=== PATIENT | female | born 1950 | race Caucasian/White ===

== ENCOUNTER → 2017-10-08 09:19 | Outpatient (CLI) | payer OTHER, SELFPAY ==
[2017-10-08 10:18] LABS: Absolute Lymphocyte Count 1.34 X10^3/ul (0.83-4.51); Absolute Neutrophil Count 3.1 X10^3/uL (2.0-7.7); Basophil# 0.03 X10^3/uL; Basophil% 0.6 % (0-1); Eosinophil# 0.19 X10^3/uL; Eosinophils% 3.7 % (0-5); Hematocrit 45.1 % (37-47); Lymphocyte # 1.34 X10^3/ul (4.0); Lymphocyte % 26.2 % (19-41); Mean Corp Hgb Conc 33.3 g/gl (32-36); Mean Corpuscular Hgb 29.4 pg (27.0-32.0); Mean Corpuscular Volume 88.4 fL (81-99); Monocyte# 0.49 X10^3/uL; Monocyte% 9.6 % (0-10); Neutrophil # 3.07 X10^3/uL (2.7-7.7); Neutrophil % 59.9 % (47-70); Platelet Count 289 K/mm3 (150-450); RBC Distribution Width CV 14.4 % (11.6-14.6); RBC Distribution Width SD 46.4 fl (35.1-43.9); White Blood Count 5.1 K/mm3 (4.4-11.0)
[2017-10-08 10:20] LABS: Erythrocyte Sedimentation Rate 3 mm/hr (0-30); POSITIVE COUNT NO; POSITIVE DIFFERENTIAL NO; POSITIVE MORPHOLOGY NO
[2017-10-08 10:39] LABS: AST(SGOT) 18 U/L (15-37); Alanine Aminotransfer ALT/SGPT 22 U/L (13-56); Albumin, Serum 3.8 g/dL (3.2-5.0); Alkaline Phosphatase 78 U/L (45-117); Bilirubin, Direct 0.19 mg/dL (0.00-0.30); Cholesterol 159 mg/dL (200); High Density Lipoprotein 68 mg/dL; Protein, Total 6.8 g/dL (6.4-8.2); Triglycerides 42 mg/dL; Very Low Density Lipoprotein 8 mg/dL (5-40)
[2017-10-12 20:08] LABS: Lyme IgG P18 Ab Absent (.); Lyme IgG P23 Ab Absent (.); Lyme IgG P28 Ab Absent (.); Lyme IgG P30 Ab Absent (.); Lyme IgG P39 Ab Absent (.); Lyme IgG P41 Ab Absent (.); Lyme IgG P45 Ab Absent (.); Lyme IgG P58 Ab Absent (.); Lyme IgG P66 Ab Absent (.); Lyme IgG P93 Ab Absent (.); Lyme IgM P23 Ab Absent (.); Lyme IgM P39 Ab Absent (.); Lyme IgM P41 Ab Absent (.)
[2017-10-13 14:56] LABS: Lyme IgG WB Interpretation Negative (.); Lyme IgM WB Interpretation Negative (.)
== END ==
PROVIDERS: Family Provider Family Medicine; PCP Family Medicine; Visit Provider Orthopaedic Surgery
DX: M17.11 Unilateral primary osteoarthritis, right knee (principal); M25.461 Effusion, right knee
CPT/HCPCS: 36415; 80061; 80076; 85025; 85652; 86617

== ENCOUNTER → 2017-11-12 13:29 | Outpatient (CLI) | payer OTHER, SELFPAY ==
[2017-11-12 16:10] LABS: Absolute Lymphocyte Count 1.14 X10^3/ul (0.83-4.51); Absolute Neutrophil Count 3.2 X10^3/uL (2.0-7.7); Basophil# 0.07 X10^3/uL; Basophil% 1.4 % (0-1); Eosinophil# 0.09 X10^3/uL; Eosinophils% 1.8 % (0-5); Hematocrit 45.4 % (37-47); Hemoglobin 14.6 g/dl (12.0-15.0); Lymphocyte # 1.14 X10^3/ul (4.0); Lymphocyte % 22.7 % (19-41); Mean Corp Hgb Conc 32.2 g/gl (32-36); Mean Corpuscular Hgb 28.7 pg (27.0-32.0); Mean Corpuscular Volume 89.2 fL (81-99); Mean Platelet Vol. 10.1 fl (6.2-12.0); Neutrophil # 3.22 X10^3/uL (2.7-7.7); Neutrophil % 64.1 % (47-70); Platelet Count 317 K/mm3 (150-450); RBC Distribution Width SD 45.8 fl (35.1-43.9); Red Blood Count 5.09 M/mm3 (4.2-5.4)
[2017-11-12 16:12] LABS: POSITIVE COUNT NO; POSITIVE DIFFERENTIAL NO; POSITIVE MORPHOLOGY NO
[2017-11-12 16:19] LABS: Erythrocyte Sedimentation Rate 10 mm/hr (0-30)
[2017-11-12 16:27] LABS: CRP < 2.90 mg/L (0.0-3.0); CRP, High Sensitivity Cardiac 0.76 mg/L; Rheumatoid Factor < 10.0 IU/mL (<15); Thyroid Stim Hormone (TSH) 0.62 uIU/mL (0.358-3.74)
[2017-11-13 08:22] LABS: Vitamin D,25 Hydroxy 24.6 ng/mL (29.95-100.01)
[2017-11-17 15:33] LABS: ANTINUCLEAR ANTIBODIES DIRECT Negative (Negative)
[2017-11-18 12:07] LABS: Lyme IgG P18 Ab Absent (.); Lyme IgG P23 Ab Absent (.); Lyme IgG P28 Ab Absent (.); Lyme IgG P30 Ab Absent (.); Lyme IgG P39 Ab Absent (.); Lyme IgG P41 Ab Absent (.); Lyme IgG P45 Ab Absent (.); Lyme IgG P58 Ab Absent (.); Lyme IgG P66 Ab Absent (.); Lyme IgG P93 Ab Absent (.); Lyme IgM P23 Ab Absent (.); Lyme IgM P39 Ab Absent (.); Lyme IgM P41 Ab Absent (.)
[2017-11-18 13:09] LABS: Lyme IgG WB Interpretation Negative (.); Lyme IgM WB Interpretation Negative (.)
== END ==
PROVIDERS: Family Provider Family Medicine; PCP Family Medicine; Visit Provider Orthopaedic Surgery
DX: M79.672 Pain in left foot (principal)
CPT/HCPCS: 36415; 82306; 84443; 84550; 85025; 85652; 86038; 86140; 86141; 86431; 86617

== ENCOUNTER → 2017-12-24 08:15 | Outpatient (CLI) | payer OTHER, SELFPAY | PROVIDERS: Family Provider Family Medicine; PCP Family Medicine; Visit Provider Orthopaedic Surgery | DX: M13.0 Polyarthritis, unspecified (principal) | CPT/HCPCS: 87177; 87209; 87506 ==

== ENCOUNTER → 2019-04-28 10:14 | Outpatient (CLI) | payer MEDICARE, OTHER, SELFPAY ==
--- NOTE | 2019-04-28 10:22 | RAD_ITS ---
STUDY: X-RAY CHEST REASON FOR EXAM: Female, 68 years old. Cough. TECHNIQUE: PA and lateral views of the chest. COMPARISON: None. FINDINGS: Cardiac silhouette unremarkable. Pulmonary vascularity unremarkable. Aorta unremarkable. No focal patchy airspace opacities. No pleural effusions. Slightly coarse lung markings. Upper abdomen unremarkable. Osseous structures slightly demineralized with degenerative features. No pneumothorax. RAD/Chest PA and Lateral IMPRESSION: No acute cardiopulmonary findings Electronically Signed: Sunny Montesinos DO at 11:21 EST Tel , Service support ,
== END ==
PROVIDERS: Family Provider Family Medicine; PCP Family Medicine; Referring Provider Nurse Practitioner Family; Visit Provider Nurse Practitioner Family
DX: R05 Cough (principal)
CPT/HCPCS: 71046

== ENCOUNTER → 2020-01-25 | Outpatient (CLI) | payer MEDICARE, OTHER, SELFPAY ==
[2020-01-25 10:04] LABS: Hematocrit 44.6 % (37-47); Hemoglobin 14.6 g/dL (12.0-15.0); Mean Corp Hgb Conc 32.7 g/dL (32-36); Mean Corpuscular Hgb 33.6 pg (27.0-32.0); Mean Corpuscular Volume 102.5 fL (81-99); Mean Platelet Vol. 9.7 fl (6.2-12.0); Platelet Count 327 K/mm3 (150-450); RBC Distribution Width SD 49.5 fl (35.1-43.9); Red Blood Count 4.35 M/mm3 (4.2-5.4); White Blood Count 4.3 K/mm3 (4.4-11.0)
[2020-01-25 10:44] LABS: CRP < 2.90 mg/L (0.0-3.0)
[2020-01-26 20:07] LABS: Endomysial Antibody IgA Negative (Negative)
[2020-01-26 20:37] LABS: Immunoglobulin A 143 mg/dL (87-352); t-Transglutaminase IgA <2 U/mL (0-3)
== END | disposition home or self-care (01) ==
LOC: MTLAB 07:57
PROVIDERS: PCP Family Medicine; Referring Provider Internal Medicine Gastroenterology; Visit Provider Internal Medicine Gastroenterology
DX: R19.7 Diarrhea, unspecified (principal)
CPT/HCPCS: 36415; 82784; 83516; 85027; 86140; 86255

== ENCOUNTER → 2020-01-27 | Outpatient (CLI) | payer MEDICARE, OTHER, SELFPAY ==
--- NOTE | 2020-01-27 12:20 | COLBX_PTH ---
PATIENT: VOLODYMYR FELDMAN [facility] U#:[id number] AGE/SX: 69/F ROOM: RE01/27/[address]: Dr. Osman Kumar MD : 1950 BED: DIS: 01/27/2020 SPEC #: [id number] RECD: 01/27/20 15:11 STATUS: COOKIE ASHLEY #: [id number] ELIZA: 01/27/20 12:[address]: Osman Kumar DEPT: SURGICAL PATHOLOGY RECD BY: Eduard Tilley ENTERED: 01/30/20 07:18 SP TYPE: COLON BX OTHR DR: Dr. Sunny Pleitez MD [facility] Tissues: A - Ileum, NOS B - COLON BIOPSY Procedures: Trichrome (control) Special Stain Group II Surgery Specimen Level IV HEADER OPERATION: Colonoscopy with biopsies PRE-OP DIAGNOSIS: Diarrhea, abdominal cramping TISSUE SUBMITTED: A - Terminal ileum, B - Right and left colon MICROSCOPIC DIAGNOSIS A. Terminal ileum, biopsy: No pathologic change. No evidence of ileitis. B. Right and left colon, biopsies: Suggestive of lymphocytic colitis. See comment. AM:sydnie 01/31/20 COMMENT B. Trichrome stain with matched control does not reveal a thin basal plate. Clinical correlation is suggested. MICROSCOPIC DESCRIPTION Slides are reviewed. GROSS DESCRIPTION A - Received in fixative is one container labeled with the patient's name and designated terminal ileum biopsy. The specimen consists of multiple irregular fragments of light arguello soft tissue that in aggregate measure 0.7 x 0.5 x 0.1 cm. The specimen is totally submitted in one cassette. B - Received in fixative is one container labeled with the patient's name and designated right and left colon. The specimen consists of multiple irregular fragments of light arguello soft tissue that in aggregate measure 1.5 x 0.6 x 0.1 cm. The specimen is totally submitted in one cassette. / AM:sydnie 01/30/20 TC:3 CPT: 50522 x2, 00017
== END | disposition home or self-care (01) ==
LOC: LABSPEC 15:24
PROVIDERS: PCP Family Medicine; Referring Provider Internal Medicine Gastroenterology; Visit Provider Internal Medicine Gastroenterology
DX: R19.7 Diarrhea, unspecified (principal); R10.9 Unspecified abdominal pain
CPT/HCPCS: 88305; 88313

== ENCOUNTER → 2020-04-09 | Outpatient (CLI) | payer MEDICARE, OTHER, SELFPAY ==
[2020-04-18 14:22] LABS: Fats, Neutral Normal (.); Fats, Total Normal (.)
== END | disposition home or self-care (01) ==
LOC: LABSPEC 14:01
PROVIDERS: PCP Family Medicine; Referring Provider Internal Medicine Gastroenterology; Visit Provider Internal Medicine Gastroenterology
DX: R19.7 Diarrhea, unspecified (principal)
CPT/HCPCS: 82705

== ENCOUNTER → 2021-01-09 10:41 | Outpatient (CLI) | payer MEDICARE, OTHER, SELFPAY ==
[2021-01-09 12:17] LABS: Erythrocyte Sedimentation Rate < 1 mm/hr (0-30)
[2021-01-09 12:19] LABS: Hematocrit 40.7 % (37-47); Mean Corp Hgb Conc 34.4 g/dL (32-36); Mean Corpuscular Hgb 40.9 pg (27.0-32.0); Mean Platelet Vol. 9.7 fl (6.2-12.0); Platelet Count 310 K/mm3 (150-450); RBC Distribution Width CV 11.9 % (11.6-14.6); Red Blood Count 3.42 M/mm3 (4.2-5.4)
[2021-01-09 12:34] LABS: CRP < 2.90 mg/L (0.0-3.0)
[2021-01-10 21:07] LABS: ANTINUCLEAR ANTIBODIES DIRECT Negative (Negative)
== END ==
PROVIDERS: PCP Family Medicine; Referring Provider Internal Medicine Gastroenterology; Visit Provider Internal Medicine Gastroenterology
DX: K52.9 Noninfective gastroenteritis and colitis, unspecified (principal)
CPT/HCPCS: 36415; 85027; 85652; 86038; 86140

== ENCOUNTER → 2021-02-27 15:08 | Outpatient (CLI) | payer MEDICARE, OTHER, SELFPAY ==
[2021-02-27 17:56] LABS: Absolute Lymphocyte Count 1.58 X10^3/uL (0.83-4.51); Absolute Neutrophil Count 3.3 X10^3/uL (2.0-7.7); Basophil# 0.01 X10^3/uL; Basophil% 0.2 % (0-1); Eosinophil# 0.15 X10^3/uL; Eosinophils% 2.7 % (0-5); Hematocrit 42.6 % (37-47); Hemoglobin 14.4 g/dL (12.0-15.0); Lymphocyte # 1.58 X10^3/ul (0.83-4.51); Lymphocyte % 28.9 % (19-41); Mean Corp Hgb Conc 33.8 g/dL (32-36); Mean Corpuscular Hgb 38.9 pg (27.0-32.0); Mean Corpuscular Volume 115.1 fL (81-99); Mean Platelet Vol. 9.7 fl (6.2-12.0); Monocyte# 0.42 X10^3/uL; Monocyte% 7.7 % (0-10); NRBC Flagged by Analyzer 0 % (0-5); Neutrophil # 3.28 X10^3/uL (2.7-7.7); Neutrophil % 60.1 % (47-70); Platelet Count 316 K/mm3 (150-450); RBC Distribution Width CV 13.2 % (11.6-14.6); RBC Distribution Width SD 56.2 fl (35.1-43.9); White Blood Count 5.5 K/mm3 (4.4-11.0)
[2021-02-27 18:25] LABS: Vitamin B12 142 pg/mL (211-911)
[2021-02-27 18:26] LABS: Hemoglobin A1c 5.5 % (3.8-5.6)
[2021-02-27 19:02] LABS: AST(SGOT) 14 U/L (15-37); Alanine Aminotransfer ALT/SGPT 20 U/L (13-56); Albumin, Serum 3.7 g/dL (3.2-5.0); Alkaline Phosphatase 76 U/L (45-117); Anion Gap 5 (5-15); BUN 16 mg/dL (7-18); BUN/Creat Ratio 19.5 RATIO (10-20); Chloride 103 mmol/L (98-107); Creatinine, Serum 0.82 mg/dL (0.55-1.02); EST Glomerular Filtration Rate 73 mL/min (>60); Est Glom Filt Rate - Afr Amer 89 mL/min (>60); Globulin 3.6 g/dL (2.2-4.2); Glucose 131 mg/dL (74-106); Potassium 3.5 mmol/L (3.5-5.1); Protein, Total 7.3 g/dL (6.4-8.2); Sodium Level 138 mmol/L (136-145); Thyroid Stim Hormone (TSH) 0.72 uIU/mL (0.358-3.74)
[2021-03-07 14:50] LABS: VITAMIN B6 8.7 ug/L (2.0-32.8)
[2021-03-09 11:11] LABS: Vitamin B1, Thiamine 175.7 nmol/L (66.5-200.0)
== END ==
PROVIDERS: Family Medicine; PCP Family Medicine; Referring Provider Family Medicine; Visit Provider Family Medicine
DX: D75.89 Other specified diseases of blood and blood-forming organs (principal); G62.9 Polyneuropathy, unspecified
CPT/HCPCS: 36415; 80053; 82607; 82746; 83036; 84207; 84425; 84443; 85025

== ENCOUNTER → 2021-03-07 12:58 | Outpatient (CLI) | payer MEDICARE, OTHER, SELFPAY ==
--- NOTE | 2021-03-07 12:59 | ECHOD_ITS ---
Reason For Study: MURMUR Procedure This was a 2D Doppler, Color Flow transthoracic echocardiogram. The exam was of adequate technical quality. Exam performed in department. Left Ventricle Normal LV size. Left ventricular systolic function is normal. The estimated ejection fraction is 60 %. The global longitudinal strain = -19 % (normal). Diastolic function is indeterminate. No regional wall motion abnormalities noted. Right Ventricle Normal RV size. Normal systolic function. Atria Normal left atrium. Normal right atrium. No doppler evidence for ASD. Mitral Valve There is no mitral annular calcification. Normal mitral valve. Mild (1+) mitral valve insufficiency. Tricuspid Valve Normal tricuspid valve. Mild to moderate (1-2+) tricuspid valve insufficiency. Right ventricular systolic pressure estimated to be 32 mmHg. Aortic Valve Trisinus/trileaflet aortic valve. Mild diffuse aortic valve thickening. Mild focal aortic valve calcification. Pulmonic Valve The pulmonic valve is not well visualized. Great Vessels Mildly dilated aortic root. Pericardium/Pleural No pericardial effusion. MMode/2D Measurements & Calculations LVIDd: 4.5 cm IVSd: 0.59 cm Ao root diam: 4.1 cm LVIDs: 3.2 cm LVPWd: 0.65 cm RVDd: 3.4 cm FS: 29.3 % LAV(MOD-bp): 40.8 ml LVAd ap4: 24.5 cm2 LVAd ap2: 29.1 cm2 LAV(MOD-bp) Indexed: 23.9 ml/m2 LVLd ap4: 7.8 cm LVLd ap2: 8.1 cm LAV(MOD-sp2): 40.0 ml EDV(MOD-sp4): 63.4 ml EDV(MOD-sp2): 88.0 ml LAV(MOD-sp4): 36.7 ml EDV(sp4-el): 65.5 ml EDV(sp2-el): 88.7 ml LVAs ap4: 14.2 cm2 LVAs ap2: 15.6 cm2 LVLs ap4: 6.5 cm LVLs ap2: 6.7 cm ESV(MOD-sp4): 26.4 ml ESV(MOD-sp2): 31.0 ml ESV(sp4-el): 26.5 ml ESV(sp2-el): 31.0 ml EF(MOD-sp4): 58.3 % EF(MOD-sp2): 64.8 % EF(sp4-el): 59.6 % SV(MOD-sp4): 36.9 ml SV(MOD-sp2): 57.0 ml SV(sp4-el): 39.0 ml LA dimension(2D): 4.0 cm LA A4 area: 14.6 cm2 RA A4 area: 17.8 cm2 Doppler Measurements & Calculations MV E max waldemar: 80.8 cm/sec Lat Peak E' Waldemar: 5.9 cm/sec Med Peak E' Waldemar: 5.1 cm/sec MV A max waldemar: 101.9 cm/sec E/E' lat: 13.7 E/E' med: 15.8 MV E/A: 0.79 Ao V2 max: 143.9 cm/sec LV V1 max: 109.7 cm/sec TR max waldemar: 267.3 cm/sec Ao max P.3 mmHg LV V1 max P.8 mmHg TR max P.6 mmHg ECHO/Echo Complete Interpretation Summary Left ventricular systolic function is normal. The estimated ejection fraction is 60 %. The global longitudinal strain = -19 % (normal). Mild (1+) mitral valve insufficiency. Mild to moderate (1-2+) tricuspid valve insufficiency. Mild diffuse aortic valve thickening. Mild focal aortic valve calcification. Mildly dilated aortic root. Right ventricular systolic pressure estimated to be 32 mmHg. Diastolic function is indeterminate. Ordering Physician: Danny Bolton Referring Physician: Danny Bolton Performed By: Adriane Reid, RDCS, RVT
== END ==
PROVIDERS: PCP Family Medicine; Referring Provider Family Medicine; Visit Provider Family Medicine
DX: R01.1 Cardiac murmur, unspecified (principal)
CPT/HCPCS: 93306

== ENCOUNTER → 2021-03-19 12:34 | Outpatient (CLI) | payer MEDICARE, OTHER, SELFPAY ==
[2021-03-19 15:22] LABS: Vitamin B12 459 pg/mL (211-911)
== END ==
PROVIDERS: PCP Family Medicine; Referring Provider Family Medicine; Visit Provider Family Medicine
DX: E53.8 Deficiency of other specified B group vitamins (principal)
CPT/HCPCS: 36415; 82607

== ENCOUNTER 2021-07-09 14:26 | Outpatient (CLI) | payer MEDICARE, OTHER, SELFPAY ==
--- NOTE | 2021-07-09 14:30 | BI_ITS ---
MAMMOGRAPHY - BILATERAL SCREENING 3-D TOMOSYNTHESIS REASON FOR EXAM: Female, 70 years old. SCREENING PERTINENT HISTORY: No significant family history. TECHNIQUE: 2-D mammograms and 3-D Tomosynthesis of the breast (s) were performed. CAD was performed. COMPARISON: 10/20/2006 FINDINGS: The breast composition is heterogeneously dense that can obscure small breast masses. Scattered benign calcifications are seen. No dense spiculated masses or suspicious microcalcifications are identified. No architectural distortion is identified. There is no skin thickening or retraction. There has been no significant change since the prior study. BI/SCRN MAMM (CAD)W/PARRIS BILAT IMPRESSION: No mammographic signs of malignancy. Routine yearly mammograms recommended. ASSESSMENT CATEGORY: BIRADS Category 1: Negative. A letter regarding these results will be sent to the patient by the facility within 30 days. FOLLOW UP RECOMMENDATION: Yearly follow up mammogram recommended. (A) Approximately 10% of breast cancers are not detected by mammography. A normal mammogram should not delay biopsy of a clinically suspicious abnormality. Electronically Signed: Gilles Hawley MD at 17:47 EDT ,
--- NOTE | 2021-07-09 14:32 | BD_ITS ---
STUDY: DUAL ENERGY X-RAY ABSORPTIOMETRY / DXA REASON FOR EXAM: Female, 70 years old. Z780. Patient is postmenopausal. TECHNIQUE: Bone Mineral Density (BMD) measurements of lumbar spine and bilateral hips were obtained. COMPARISON: None. FINDINGS: Lumbar Spine (L1-L4): g/cm2 (0.909) / T-score (-0.6) / Z-score (1.3) Findings are suggestive of normal bone density with a low fracture risk. Left Femur Total: g/cm2 (0.782) / T-score (-1.3) / Z-score (0.2) Left Femoral Neck: g/cm2 (0.677) / T-score (-1.5) / Z-score (0.2) Right Femur Total: g/cm2 (0.748) / T-score (-1.6) / Z-score (-0.1) Right Femoral Neck: g/cm2 (0.645) / T-score (-1.8) / Z-score (-0.1) BD/Dexa Bone Density Study IMPRESSION: The patient is considered osteopenic as outlined below according to World Long Organization (WHO) criteria with a moderate fracture risk. Reference Information: The T-score is the number of standard deviations above or below the standard which is normal for young adults at their peak bone mineral density. The World Health Organization (WHO) interprets the T-scores as follows: Above -1 Normal bone density Between -1 and -2.5 Osteopenia Equal to / or below -2.5 Osteoporosis As a practical clinical guideline, osteopenia may be graded as follows: Mild -1 through -1.5 Moderate -1.6 through -2.0 Severe -2.1 through -2.4 The Z-score is the number of standard deviations above or below age-matched controls. A Z-score of less than -1.5 would be considered abnormal. References: 1. NIH Osteoporosis and Related Bone Diseases www osteo.org 2. International Society for Clinical Densitometry www iscd.org 3. National Osteoporosis Foundation www nof.org Electronically Signed: Eligio Foley MD at 9:25 EDT ,
== END 2021-07-09 23:59 | disposition home or self-care (01) ==
LOC: OPBD 14:28
PROVIDERS: PCP Family Medicine; Visit Provider Family Medicine
DX: Z12.31 Encounter for screening mammogram for malignant neoplasm of breast (principal); Z78.0 Asymptomatic menopausal state
CPT/HCPCS: 77063; 77067; 77080

== ENCOUNTER → 2021-08-27 | Outpatient (CLI) | payer MEDICARE, OTHER, SELFPAY ==
[2021-08-29 17:17] LABS: Intrinsic Factor Ab 58.5 AU/mL (0.0-1.1)
== END | disposition home or self-care (01) ==
PROVIDERS: PCP Family Medicine; Referring Provider Psychiatry & Neurology Neurology; Visit Provider Psychiatry & Neurology Neurology
DX: E53.8 Deficiency of other specified B group vitamins (principal)
CPT/HCPCS: 36415; 86340

== ENCOUNTER → 2021-11-11 | Outpatient (CLI) | payer MEDICARE, OTHER, SELFPAY ==
[2021-11-11 13:10] LABS: Anion Gap 8 (5-15); BUN 17 mg/dL (7-18); BUN/Creat Ratio 17.7 RATIO (10-20); Calcium,Total 9.3 mg/dL (8.5-10.1); Chloride 105 mmol/L (98-107); Creatinine, Serum 0.96 mg/dL (0.55-1.02); EST Glomerular Filtration Rate 61 mL/min (>60); Est Glom Filt Rate - Afr Amer 74 mL/min (>60); Glucose 134 mg/dL (74-106); Potassium 3.7 mmol/L (3.5-5.1); Sodium Level 140 mmol/L (136-145); Thyroid Stim Hormone (TSH) 0.63 uIU/mL (0.358-3.74)
--- NOTE | 2021-11-11 13:32 | CT_ITS ---
STUDY: CTA ABDOMEN AND PELVIS WITH CONTRAST REASON FOR EXAM: Female, 71 years old. Secondary HTN RADIATION DOSAGE (If Supplied By Facility): CTDIvol = ( 20.80 ) mGy, DLP = ( 1103.74 ) mGycm TECHNIQUE: Transaxial images were obtained from the dome of the diaphragm to the symphysis pubis without oral contrast. IV 100mL Isovue-370 was administered. Sagittal and coronal images were reconstructed. Individualized dose optimization techniques were used for this CT. COMPARISON: Minimal degree of increased linear markings at the lung bases slightly more prominent at the left lung base suggestive of a mild scarring. FINDINGS: The visualized lung bases are unremarkable. The visualized portions of the heart are within normal limits. Normal liver. Normal gallbladder and extrahepatic biliary system. Normal spleen. Normal pancreas. Normal bilateral adrenal glands. Moderate degree of right hydronephrosis most likely secondary to a 1.5 cm x 1.3 cm calculus at the ureteropelvic junction. Normal left kidney. Normal visualized stomach. Normal small intestine. Normal colon. The appendix is visualized and appears normal. There is scattered atherosclerotic calcification of the abdominal aorta, without a demonstrated aneurysm. Normal inferior vena cava. Normal retroperitoneum. Normal urinary bladder. Normal abdominal wall. There are diffuse degenerative changes of the visualized lumbar spine. There is a grade 1 anterior listhesis of L5 on S1 secondary to spondylolysis of the pars interarticularis of the L5 vertebrae. CT/CT ANGIO ABD&PEL W/O&W/DYE IMPRESSION: 1.5 cm x 1.3 cm calculus at the right ureteropelvic junction causing a moderate degree of right hydronephrosis. No significant aortic or renal arterial stenosis. Electronically Signed: Eligio Foley MD at 14:58 EDT ,
[2021-11-22 16:20] LABS: ALDOSTERONE/RENIN RATIO 20.3 (0.0-30.0)
== END | disposition home or self-care (01) ==
LOC: CT 13:31
PROVIDERS: PCP Family Medicine; Referring Provider Internal Medicine Cardiovascular Disease; Visit Provider Internal Medicine Cardiovascular Disease
DX: I15.9 Secondary hypertension, unspecified (principal); N13.2 Hydronephrosis with renal and ureteral calculous obstruction; R03.0 Elevated blood-pressure reading, without diagnosis of hypertension; R53.83 Other fatigue; R20.2 Paresthesia of skin; G62.9 Polyneuropathy, unspecified; E53.8 Deficiency of other specified B group vitamins
CPT/HCPCS: 36415; 74174; 80048; 82088; 84244; 84443; Q9967

== ENCOUNTER → 2021-11-12 | Outpatient (CLI) | payer MEDICARE, OTHER, SELFPAY | END | disposition home or self-care (01) | LOC: CVS 09:02 | PROVIDERS: PCP Family Medicine; Referring Provider Internal Medicine Cardiovascular Disease; Visit Provider Internal Medicine Cardiovascular Disease | DX: R03.0 Elevated blood-pressure reading, without diagnosis of hypertension (principal) | CPT/HCPCS: 93788 ==

== ENCOUNTER → 2021-11-19 | Outpatient (CLI) | payer MEDICARE, OTHER, SELFPAY ==
[2021-11-19 10:25] LABS: Hematocrit 47.4 % (37-47); Hemoglobin 15.5 g/dL (12.0-15.0); Mean Corp Hgb Conc 32.7 g/dL (32-36); Mean Corpuscular Volume 85.7 fL (81-99); Mean Platelet Vol. 10.2 fl (6.2-12.0); Platelet Count 381 K/mm3 (150-450); RBC Distribution Width CV 13.4 % (11.6-14.6); RBC Distribution Width SD 42.2 fl (35.1-43.9); Red Blood Count 5.53 M/mm3 (4.2-5.4); White Blood Count 7.1 K/mm3 (4.4-11.0)
== END | disposition home or self-care (01) ==
LOC: MTLAB 08:44
PROVIDERS: PCP Family Medicine; Referring Provider Urology; Visit Provider Urology
DX: Z01.812 Encounter for preprocedural laboratory examination (principal)
CPT/HCPCS: 36415; 85027

== ENCOUNTER → 2022-07-07 | Outpatient (CLI) | payer MEDICARE, OTHER, SELFPAY ==
--- NOTE | 2022-07-07 09:20 | RAD_ITS ---
STUDY: X-RAY - ABDOMEN/PELVIS REASON FOR EXAM: Female, 71 years old. CALCULUS OF KIDNEY TECHNIQUE: Single AP view of the abdomen / pelvis. COMPARISON: None. FINDINGS: Normal visualized lung bases. There is a moderate amount of colonic fecal material. There is no demonstrated free abdominal air. The visualized liver, spleen and kidneys are grossly normal in size and morphology. No demonstrated calcifications overlying either renal shadow, or along the expected course of either ureter. However, one could be obscured by the overlying bowel gas and stool Normal soft tissue structures. Normal visualized osseous structures. RAD/Abdomen Single View IMPRESSION: No suspicious findings Electronically Signed: Gregg Lee MD at 9:32 EDT ,
== END | disposition home or self-care (01) ==
LOC: RAD 09:03
PROVIDERS: PCP Family Medicine; Referring Provider Urology; Visit Provider Urology
DX: N20.0 Calculus of kidney (principal)
CPT/HCPCS: 74018

== ENCOUNTER → 2023-11-09 | Outpatient (CLI) | payer MEDICARE, OTHER, SELFPAY ==
[2023-11-09 14:03] LABS: Anion Gap 8 (5-15); BUN 14 mg/dL (7-18); BUN/Creat Ratio 21.9 RATIO (10-20); Calcium,Total 9.2 mg/dL (8.5-10.1); Chloride 108 mmol/L (98-107); Cholesterol 168 mg/dL (200); Creatinine, Serum 0.64 mg/dL (0.55-1.02); EST Glomerular Filtration Rate 97 mL/min (>60); Est Glom Filt Rate - Afr Amer 117 mL/min (>60); Glucose 100 mg/dL (74-106); High Density Lipoprotein 57 mg/dL; Potassium 4.2 mmol/L (3.5-5.1); Sodium Level 141 mmol/L (136-145); Triglycerides 82 mg/dL; Very Low Density Lipoprotein 16 mg/dL (5-40)
== END | disposition home or self-care (01) ==
LOC: MFPLAB 09:50
PROVIDERS: PCP Family Medicine; Visit Provider Nurse Practitioner Family
DX: Z13.1 Encounter for screening for diabetes mellitus (principal); Z13.220 Encounter for screening for lipoid disorders; Z13.6 Encounter for screening for cardiovascular disorders
CPT/HCPCS: 36415; 80048; 80061

== ENCOUNTER → 2023-11-18 | Outpatient (CLI) | payer MEDICARE, OTHER, SELFPAY ==
--- NOTE | 2023-11-18 08:11 | BI_ITS ---
MAMMOGRAPHY - BILATERAL SCREENING REASON FOR EXAM: Female, 73 years old. Routine annual screening examination. PERTINENT HISTORY: Non-contributory. TECHNIQUE: Digital bilateral breast farhad (3D mammographic acquisition) in the CC and MLO projections. 2-D mediolateral oblique (MLO) and craniocaudad (CC) views of both breasts were obtained. CAD: Full Field Digital Mammography with Computer Added Detection was performed. COMPARISON: Comparison is made with prior study of July 09, 2021.. FINDINGS: Breast Composition: The breasts are heterogeneously dense, which may obscure small masses. There are no dominant masses or suspicious calcifications. Stable bilateral fat containing axillary lymph nodes. No other significant abnormalities are identified. There has been no significant change since the prior study. BI/SCREENING MAMM (CAD), BILAT IMPRESSION: Stable bilateral screening mammogram. Yearly follow-up mammogram recommended. (A) ASSESSMENT CATEGORY: BIRADS Category 2: Benign. A letter regarding these results will be sent to the patient by the facility within 30 days. Approximately 10% of breast cancers are not detected by mammography. A normal mammogram should not delay biopsy of a clinically suspicious abnormality. [id number] Electronically Signed: Eligio Foley MD at 9:22 EDT ,
== END | disposition home or self-care (01) ==
LOC: OPBI 08:11
PROVIDERS: PCP Family Medicine; Referring Provider Nurse Practitioner Family; Visit Provider Nurse Practitioner Family
DX: Z12.31 Encounter for screening mammogram for malignant neoplasm of breast (principal)
CPT/HCPCS: 77067

== ENCOUNTER 2024-03-10 04:54 | Inpatient (IN) | payer MEDICARE, OTHER, SELFPAY ==
[2024-03-10 04:54] VITALS: BP 150/98; PULSE 100; RESP 16; TEMP 37; O2SAT 96; BMI 28.0
--- NOTE | 2024-03-10 05:45 | CT_ITS ---
EXAM: CT Abdomen And Pelvis W/ Contrast Injection HISTORY: abd pain TECHNIQUE: Routine protocol CT abdomen pelvis. IV Contrast: IV 100mL Isovue-370 . Oral Contrast: without. Sagittal and coronal images were reconstructed. RADIATION DOSAGE (If Supplied By Facility): CTDIvol = ( 13.84 ) mGy, DLP = ( 865.94 ) mGycm Individualized dose optimization techniques were used for this CT. COMPARISON: CT abdomen pelvis 11/11/2021. LIMITATIONS: None. FINDINGS: LOWER CHEST: Lung bases are clear. LIVER: Unremarkable. GALLBLADDER/BILE DUCTS: Unremarkable. PANCREAS: Unremarkable. SPLEEN: Unremarkable. ADRENAL GLANDS: Unremarkable. KIDNEYS / URETERS: Unremarkable. BOWEL / MESENTERY: Moderately dilated small bowel. Difficult to follow the course of the bowel. Distal small bowel decreased caliber. Transition zone not identified but may be in the left midabdomen. There is relative twisting of the central mesenteric vessels, possibly distortion difficult to exclude volvulus or internal hernia. The stomach is moderately distended with large amount of fluid. APPENDIX: Not identified. PERITONEUM: No free air. Small amount of free fluid in the abdomen and pelvis. VESSELS: Abdominal aorta is normal caliber. RETROPERITONEUM: Unremarkable. REPRODUCTIVE ORGANS: Unremarkable. BLADDER: Unremarkable. ABDOMINAL WALL: Unremarkable. BONES: No acute abnormality. Bilateral pars defects at L5 with grade 1 spondylolisthesis L5-S1 and degenerative changes OTHER: None. CT/Abdomen/Pelvis W IV Cont ONLY IMPRESSION: Distal small bowel obstruction. Etiology uncertain, most likely adhesions. Difficult to completely exclude volvulus or internal hernia. Small amount of ascites. Electronically Signed: Adriane Field MD at 7:13 EST ,
[2024-03-10] MEDS: Ondansetron 4 MG/2 ML Vial IV (05:54)
[2024-03-10] MEDS: Ketorolac 15 MG/ML Vial IV (05:54)
[2024-03-10] MEDS: 0.9% Normal Saline (1000mL) 1,000 ML 999 ML IV (05:55)
[2024-03-10 05:58] LABS: Absolute Lymphocyte Count 1.35 X10^3/uL (0.83-4.51); Absolute Neutrophil Count 5.8 X10^3/uL (2.0-7.7); Basophil# 0.01 X10^3/uL; Basophil% 0.1 % (0-1); Eosinophil# 0.04 X10^3/uL; Eosinophils% 0.5 % (0-5); Hematocrit 48.1 % (37-47); Lymphocyte # 1.35 X10^3/ul (0.83-4.51); Mean Corp Hgb Conc 33.3 g/dL (32-36); Mean Corpuscular Hgb 27.9 pg (27.0-32.0); Mean Corpuscular Volume 83.9 fL (81-99); Mean Platelet Vol. 9.8 fl (6.2-12.0); Monocyte# 0.67 X10^3/uL; Monocyte% 8.4 % (0-10); NRBC Flagged by Analyzer 0 % (0-5); Neutrophil # 5.83 X10^3/uL (2.7-7.7); Neutrophil % 73.5 % (47-70); Platelet Count 405 K/mm3 (150-450); RBC Distribution Width CV 14.3 % (11.6-14.6); RBC Distribution Width SD 43.6 fl (35.1-43.9); Red Blood Count 5.73 M/mm3 (4.2-5.4); White Blood Count 7.9 K/mm3 (4.4-11.0)
[2024-03-10 06:15] LABS: AST(SGOT) 17 U/L (15-37); Alanine Aminotransfer ALT/SGPT 21 U/L (13-56); Albumin, Serum 3.8 g/dL (3.2-5.0); Alkaline Phosphatase 111 U/L (45-117); Anion Gap 4 (5-15); BUN 23 mg/dL (7-18); BUN/Creat Ratio 25.6 RATIO (10-20); Bilirubin, Direct 0.23 mg/dL (0.00-0.30); Calcium,Total 9.3 mg/dL (8.5-10.1); Chloride 110 mmol/L (98-107); EST Glomerular Filtration Rate 66 mL/min (>60); Est Glom Filt Rate - Afr Amer 79 mL/min (>60); Estimated Creatinine Clearance 55.78 ml/min; Globulin 3.2 g/dL (2.2-4.2); Glucose 117 mg/dL (74-106); Lipase 23 U/L (13-75); Potassium 4.1 mmol/L (3.5-5.1); Sodium Level 140 mmol/L (136-145)
[2024-03-10 07:00] LABS: Bacteria 0 SEEN /hpf (None Seen); Mucous, Urine 0 SEEN /hpf (<or=2+); Red Blood Cells-Urine 0 SEEN /hpf (0-5); Squamous Epithelial Cells - UA 0 SEEN /hpf (5-10); White Blood Cells 0 SEEN /hpf (0-5)
[2024-03-10 07:02] LABS: Color, Urine Yellow (Yellow); Glucose, Dipstick Normal (Normal); Ketone-Dipstick Negative (Negative); Leukocyte Esterase-Dipstick Negative /ul (Negative); Nitrite-Dipstick Negative (Negative); Occult Blood-Urine Negative /ul (Negative); Protein-Dipstick Negative (Negative); Specific Gravity, Urine 1.015 (1.002-1.030); Urine Bilirubin Dipstick Negative (Negative); Urine Clarity Clear (Clear); Urine Urobilinogen Normal (Normal)
[2024-03-10 07:14] VITALS: BP 118/74; PULSE 71; RESP 16; O2SAT 96
[2024-03-10 07:18] LABS: Amorphous Sediment 2+
--- NOTE | 2024-03-10 07:41 | EDS_ITS ---
HPI History of Present Illness Chief Complaint: Abd Pain [facility] Medical History Calculus of right kidney Gastrointestinal problem Microscopic colitis Neuropathy Osteopenia Retinal detachment Vitamin deficiency Home Medications ?Medication ?Instructions ?Recorded ?Last Taken ?Type cholecalciferol (vitamin D3) 25 25 mcg PO DAILY 08/26/21 Unknown History mcg (1,000 unit) capsule loperamide 2 mg capsule (Imodium 2 mg PO Q6H PRN 08/26/21 Unknown History A-D) magnesium 200 mg tablet 200 mg PO DAILY 02/17/23 Unknown History amlodipine 5 mg tablet (Norvasc) 5 mg PO DAILY #10 tabs 11/20/23 Unknown Rx Allergy/AdvReac Type Severity Reaction Status Date / Time No Known Allergies Allergy Verified 03/10/24 04:59 Family History Father Colon cancer Heart disease Grandfather CVA (cerebral vascular accident) Other Malignant hyperthermia due to anesthesia Surgical History History of umbilical hernia repair History of ureteroscopy (11/22/21) Social History Smoking Status: Never smoker alcohol intake: current details: occasionally wine 5-6 a week EXAM Physical Exam Const Vital Signs: 03/10/24 04:54 03/10/24 07:14 Temperature 98.6 F Temperature Source Oral Pulse Rate 100 71 Respiratory Rate 16 16 Blood Pressure 150/98 H 118/74 Blood Pressure Mean 115 88 Pulse Ox 96 96 Oxygen Delivery Method Room Air Room Air [facility] Lab Data Labs: Laboratory Results - last 24 hr 03/10/24 03/10/24 05:33 06:56 WBC 7.9 RBC 5.73 H Hgb 16.0 H Hct 48.1 H MCV 83.9 MCH 27.9 MCHC 33.3 RDW Std Deviation 43.6 RDW Coeff of [place]the[place] 14.3 Plt Count 405 MPV 9.8 Immature Gran % (Auto) 0.500 Neut % (Auto) 73.5 H Lymph % (Auto) 17.0 L [place] % (Auto) 8.4 Eos % (Auto) 0.5 Baso % (Auto) 0.1 Absolute Neuts (auto) 5.8 Absolute Lymphs (auto) 1.35 Nucleated RBC % 0 Sodium 140 Potassium 4.1 Chloride 110 H Carbon Dioxide 26.0 Anion Gap 4 L BUN 23 H Creatinine 0.90 Estim Creat Clear Calc 55.78 Est GFR (MDRD) Af Amer 79 Est GFR (MDRD) Non-Af 66 BUN/Creatinine Ratio 25.6 H Glucose 117 H Calcium 9.3 Total Bilirubin 0.80 Direct Bilirubin 0.23 AST 17 ALT 21 Alkaline Phosphatase 111 Total Protein 7.0 Albumin 3.8 Globulin 3.2 Lipase 23 Urine Color Yellow Urine Clarity Clear Urine pH 8.0 Ur Specific [place] 1.015 Urine Protein Negative Urine Glucose (UA) Normal Urine Ketones Negative Urine Occult Blood Negative Urine Nitrite Negative Urine Bilirubin Negative Urine Urobilinogen Normal Ur Leukocyte Esterase Negative Urine RBC 0 SEEN Urine WBC 0 SEEN Ur Squamous Epith Cells 0 SEEN Amorphous Sediment 2+ Urine Bacteria 0 SEEN Urine Mucus 0 SEEN Radiography Diagnostic Testing: Clinical Impression(s) from Imaging Studies Abdomen/Pelvis CT 03/10/24 05:45 IMPRESSION: Distal small bowel obstruction. Etiology uncertain, most likely adhesions. Difficult to completely exclude volvulus or internal hernia. Small amount of ascites. Electronically Signed: Adriane Field MD at 7:13 EST , Discharge Plan Triage Chief Complaint: Abd Pain ED Provider: Augustin Dillon Dx/Rx/DC Orders Clinical Impression: Small bowel obstruction, Hypertension Prescriptions: No Action loperamide [Imodium A-D] 2 mg capsule 2 mg PO Q6H PRN cholecalciferol (vitamin D3) 25 mcg (1,000 unit) capsule 25 mcg PO DAILY magnesium 200 mg tablet 200 mg PO DAILY amlodipine [Norvasc] 5 mg tablet 5 mg PO DAILY Qty: 10 1RF Primary Care Provider: Sunny Pleitez Referrals: Sunny Pleitez MD [Primary Care Provider] - Print Language: Irish Disposition Disposition: Acute Care [facility]
--- NOTE | 2024-03-10 07:41 | EX.ED.DYSGE1 ---
HPI History of Present Illness Chief Complaint: Abd Pain Informant: patient and spouse/S.O. Narrative Narrative: Patient is a 73-year-old female with past medical history of hypertension and previous cholecystectomy multiple years ago. She states she struggles with bowel issues as she will fluctuate between constipation and diarrhea. The patient states she went to bed normally then awoke with generalized upper abdominal discomfort and she states she was able to have a bowel movement hoping this would help her pain but it did not do so. She states that as time passed she had increasing abdominal pain and nausea and with concern for potential infection comes in for evaluation [facility] Medical History Calculus of right kidney Gastrointestinal problem Microscopic colitis Neuropathy Osteopenia Retinal detachment Vitamin deficiency Home Medications ?Medication ?Instructions ?Recorded ?Last Taken ?Type cholecalciferol (vitamin D3) 25 25 mcg PO DAILY 08/26/21 Unknown History mcg (1,000 unit) capsule loperamide 2 mg capsule (Imodium 2 mg PO Q6H PRN 08/26/21 Unknown History A-D) magnesium 200 mg tablet 200 mg PO DAILY 02/17/23 Unknown History amlodipine 5 mg tablet (Norvasc) 5 mg PO DAILY #10 tabs 11/20/23 Unknown Rx Allergy/AdvReac Type Severity Reaction Status Date / Time No Known Allergies Allergy Verified 03/10/24 04:59 Family History Father Colon cancer Heart disease Grandfather CVA (cerebral vascular accident) Other Malignant hyperthermia due to anesthesia Surgical History History of umbilical hernia repair History of ureteroscopy (11/22/21) Social History Smoking Status: Never smoker alcohol intake: current details: occasionally wine 5-6 a week ROS ROS ED Constitutional Constitutional ED: Denies chills or fever(s) Eyes Eyes: Denies blurry vision or change in vision ENT ENT ED: Denies sore throat Cardiovascular Cardiovascular: Denies chest pain Respiratory/Chest Respiratory/Chest: Denies cough or dyspnea Gastrointestinal Gastrointestinal: Reports abdominal pain and nausea; Denies constipation, diarrhea or vomiting Genitourinary Genitourinary ED: Denies dysuria or hematuria Musculoskeletal Musculoskeletal: Reports myalgias; Denies back pain Integumentary Denies rash Neurologic Neurologic: Denies headache(s) Hematologic/Lymphatic Hematologic/Lymphatic: Denies easy bleeding or easy bruising EXAM Physical Exam Const Vital Signs: 03/10/24 04:54 03/10/24 07:14 Temperature 98.6 F Temperature Source Oral Pulse Rate 100 71 Respiratory Rate 16 16 Blood Pressure 150/98 H 118/74 Blood Pressure Mean 115 88 Pulse Ox 96 96 Oxygen Delivery Method Room Air Room Air Positive well nourished and well developed General Appearance ED: well developed; Negative for pallor HEENT Reports moist mucous membranes HEENT Narrative: No tongue or lip swelling no oral lesions no airway edema or compromise No signs of infection in the posterior pharynx Eyes PERRL and EOMs intact bilaterally General Eye ED: Negative for scleral icterus Neck supple Resp normal respiratory effort and clear to auscultation bilaterally Cardio regular rate and regular rhythm Rate: other Other Details: Regular rate and rhythm without murmurs rubs or gallops Radial and carotid pulses are equal and symmetric GI GI Narrative: Abdomen is soft with slight distention and hyperactive bowel sounds. There is mild diffuse pain with palpation in the upper abdomen without voluntary guarding or rigidity. No pulsatile mass or fluid wave. Slight increase in tympany noted Auscultation: hyperactive bowel sounds Palpation: soft Extremity normal to inspection Neuro oriented x3, CN's II-XII intact bilaterally and no sensory deficits noted Sensorium / Orientation: alert Motor Exam: strength 5/5 throughout Psych mental status grossly normal Skin no rashes or lesions noted General Skin Exam: Negative for jaundice or pallor MDM MDM MDM Narrative Medical decision making narrative: Patient presented to the ER slightly hypertensive but otherwise with stable vitals. Her report of abdominal pain could be related to a viral stomach infection such as [place] versus rotavirus it could be related to biliary colic acute cholecystitis pancreatitis small bowel obstruction versus diverticulitis versus UTI versus pyelonephritis. Therefore basic labs were obtained. Labs revealed no clinically significant findings and urine showed no changes to suggest infection. CT scan with IV contrast was obtained which showed changes consistent with a small bowel obstruction. Secondary to this the case was discussed with general surgeon Dr. Fairchild. He recommends patient be admitted to the hospital for continued observation and then NG tube be placed. I discussed this treatment with the patient and she states that she does not wish to have an NG tube placed at this time since she is not having bouts of vomiting and her pain is minimal. The patient was admitted to the medicine service based on her advanced age and history of hypertension and they were informed that she is refusing an NG tube at this time. They still agree to accept the patient and state they will monitor her and she can be evaluated by general surgery and if her symptoms worsen progress to the tube placement at that time. History & Record Review Discussion w/independent historian: Patient and Significant other Lab Data Attestation: I reviewed the patient's lab results. Labs: Laboratory Results - last 24 hr 03/10/24 03/10/24 05:33 06:56 WBC 7.9 RBC 5.73 H Hgb 16.0 H Hct 48.1 H MCV 83.9 MCH 27.9 MCHC 33.3 RDW Std Deviation 43.6 RDW Coeff of Althea 14.3 Plt Count 405 MPV 9.8 Immature Gran % (Auto) 0.500 Neut % (Auto) 73.5 H Lymph % (Auto) 17.0 L [place] % (Auto) 8.4 Eos % (Auto) 0.5 Baso % (Auto) 0.1 Absolute Neuts (auto) 5.8 Absolute Lymphs (auto) 1.35 Nucleated RBC % 0 Sodium 140 Potassium 4.1 Chloride 110 H Carbon Dioxide 26.0 Anion Gap 4 L BUN 23 H Creatinine 0.90 Estim Creat Clear Calc 55.78 Est GFR (MDRD) Af Amer 79 Est GFR (MDRD) Non-Af 66 BUN/Creatinine Ratio 25.6 H Glucose 117 H Calcium 9.3 Total Bilirubin 0.80 Direct Bilirubin 0.23 AST 17 ALT 21 Alkaline Phosphatase 111 Total Protein 7.0 Albumin 3.8 Globulin 3.2 Lipase 23 Urine Color Yellow Urine Clarity Clear Urine pH 8.0 Ur Specific [place] 1.015 Urine Protein Negative Urine Glucose (UA) Normal Urine Ketones Negative Urine Occult Blood Negative Urine Nitrite Negative Urine Bilirubin Negative Urine Urobilinogen Normal Ur Leukocyte Esterase Negative Urine RBC 0 SEEN Urine WBC 0 SEEN Ur Squamous Epith Cells 0 SEEN Amorphous Sediment 2+ Urine Bacteria 0 SEEN Urine Mucus 0 SEEN Radiography Diagnostic Testing: Clinical Impression(s) from Imaging Studies Abdomen/Pelvis CT 03/10/24 05:45 IMPRESSION: Distal small bowel obstruction. Etiology uncertain, most likely adhesions. Difficult to completely exclude volvulus or internal hernia. Small amount of ascites. Electronically Signed: Adriane Field MD at 7:13 EST , Management Discussion w/another healthcare provider: Hospitalist and Playback Operator Discharge Plan Dx/Rx/DC Orders Clinical Impression: Small bowel obstruction, Hypertension Disposition Disposition: Acute Care Hospital [facility]
[2024-03-10 08:02] VITALS: BP 129/58; PULSE 62; RESP 15; TEMP 36.4; O2SAT 98
[2024-03-10 08:20] VITALS: BP 138/86; PULSE 81; RESP 18; TEMP 36.9; O2SAT 99; BMI 27.9
[2024-03-10] MEDS: 0.9% Normal Saline (1000mL) 1,000 ML 150 ML IV ×2 (08:46→13:12)
--- NOTE | 2024-03-10 09:13 | PCM.HP.STD ---
HPI - General General Date of Admission: 03/10/24 Date of Service: 03/10/24 Chief Complaint: Abdominal pain HPI Narrative VOLODYMYR FELDMAN, is a 73 F who presents to the emergency room at [facility] with complaints of upper abdominal pain which started this morning. Patient has a past history of previous cholecystectomy years ago. Patient denies any current diarrhea, she denies any blood in her stool, she denies any nausea and vomiting. Workup in the emergency room included a CBC which showed a normal white cell count, hemoglobin was 16, and chemistry profile was unremarkable. CT of the abdomen showed a distal small bowel obstruction, there is a small amount of ascites noted. General surgery was contacted and recommended an NG tube, patient declined the NG tube at this time stating that she feels like she might be able to have a bowel movement. Patient will be admitted to [facility] and given IV fluids, she will be n.p.o. and seen in consultation by general surgery. [facility] Medical History Calculus of right kidney Gastrointestinal problem Microscopic colitis Neuropathy Osteopenia Retinal detachment Vitamin deficiency Home Medications ?Medication ?Instructions ?Recorded ?Last Taken ?Type cholecalciferol (vitamin D3) 25 25 mcg PO DAILY vitamin 08/26/21 Unknown History mcg (1,000 unit) capsule loperamide 2 mg capsule (Imodium 2 mg PO Q6H PRN diarrhea 08/26/21 Unknown History A-D) magnesium 200 mg tablet 200 mg PO DAILY . 02/17/23 Unknown History amlodipine 5 mg tablet (Norvasc) 5 mg PO DAILY #10 tabs 11/20/23 Unknown Rx Allergy/AdvReac Type Severity Reaction Status Date / Time No Known Allergies Allergy Verified 03/10/24 04:59 Family History Father Colon cancer Heart disease Grandfather CVA (cerebral vascular accident) Other Malignant hyperthermia due to anesthesia Surgical History History of umbilical hernia repair History of ureteroscopy (11/22/21) Social History Smoking Status: Never smoker alcohol intake: current details: occasionally wine 5-6 a week ROS Constitutional Constitutional: Denies anorexia, change in weight, chills, fever(s), malaise, night sweats or weakness Eyes Eyes: Denies blurry vision, change in vision, discharge from eye(s) or eye pain Cardiovascular Cardiovascular: Denies chest pain, claudication, edema or palpitations Respiratory/Chest Respiratory/Chest: Denies cough, hemoptysis, shortness of breath at rest or shortness of breath with exertion Gastrointestinal Gastrointestinal: Reports abdominal pain; Denies constipation, diarrhea, hematemesis, hematochezia, melena, nausea or vomiting Genitourinary Genitourinary: Denies dysuria, hematuria, urinary frequency, urinary hesitancy, urinary incontinence or urinary urgency Musculoskeletal Musculoskeletal: Denies back pain, joint pain, joint stiffness, joint swelling, myalgias or neck pain Neurologic Neurologic: Denies abnormal gait, abnormal speech, dizziness, focal weakness, headache(s), loss of vision, numbness, other visual disturbances, paresthesias, syncope or tingling Psychiatric Psychiatric: Denies anxiety, cognitive impairment, depression, irritability, mood swings or suicidal ideation Endocrine Endocrinology: Denies change in body appearance, cold intolerance, excessive sweating, heat intolerance, polydipsia or polyuria Hematologic/Lymphatic Hematologic/Lymphatic: Denies none, anemia, easy bleeding, easy bruising or lymphadenopathy Allergic/Immunologic Allergic/Immunologic: Denies rhinitis, urticaria, eczemia or asthma Vital Signs Vital Signs Vital Signs: 03/10/24 04:54 03/10/24 07:14 03/10/24 08:02 Temperature 98.6 F 97.6 F L Temperature Source Oral Pulse Rate 100 71 62 Respiratory Rate 16 16 15 Respiratory Effort Respiratory Depth Respiratory Pattern Blood Pressure 150/98 H 118/74 129/58 H Blood Pressure Mean 115 88 81 Blood Pressure Source Blood Pressure Position Blood Pressure Location Pulse Ox 96 96 98 Oxygen Delivery Method Room Air Room Air 03/10/24 08:20 03/10/24 08:20 Temperature 98.5 F Temperature Source Oral Pulse Rate 81 Respiratory Rate 18 Respiratory Effort Normal Respiratory Depth Normal Respiratory Pattern Normal Blood Pressure 138/86 H Blood Pressure Mean 103 Blood Pressure Source Monitor Blood Pressure Position Semi-Fowlers Blood Pressure Location Left Arm Pulse Ox 99 Oxygen Delivery Method Room Air Room Air Weight Weight: 73.936 kg Body Mass Index (BMI) 27.9 Physical Exam Const alert, oriented x3, no apparent distress, average body habitus and healthy appearing Constitutional Narrative: Patient appears younger than her stated age General Appearance: cooperative, well kempt and well developed Orientation / Consciousness: awake, oriented to person, oriented to place and oriented to time HEENT normocephalic, head/scalp atraumatic, hearing grossly normal bilaterally and moist oral mucous membranes Eyes PERRL, EOMs intact bilaterally and conjunctivae normal Neck supple, no JVD, thyroid normal and no carotid bruits General: trachea midline Resp normal respiratory effort, no retractions, no use of accessory muscles and clear to auscultation bilaterally Auscultation: Negative for rales, rhonchi or wheezes Cardio regular rate, regular rhythm, S1 normal heart sound, S2 normal heart sound, no murmurs, no rub and no gallops GI normal to inspection, nondistended, normoactive bowel sounds, soft to palpation and non-tender GI Narrative: There is mild abdominal distention, no rebound abdominal tenderness is noted, bowel sounds are present in all 4 quadrants. Extremity no clubbing, cyanosis or edema Skin no rashes or lesions noted General Skin Exam: no breakdown Neuro oriented x3, CN's II-XII intact bilaterally, moves all extremities, no focal motor deficits and no sensory deficits noted Sensorium / Orientation: awake and alert Speech: speech normal Psych affect normal Results Lab / Micro Data 03/10/24 05:33 03/10/24 05:33 Labs: Laboratory Results - last 24 hr 03/10/24 05:33: WBC 7.9, RBC 5.73 H, Hgb 16.0 H, Hct 48.1 H, MCV 83.9, MCH 27.9, MCHC 33.3, RDW Std Deviation 43.6, RDW Coeff of Althea 14.3, Plt Count 405, MPV 9.8, Immature Gran % (Auto) 0.500, Neut % (Auto) 73.5 H, Lymph % (Auto) 17.0 L, [place] % (Auto) 8.4, Eos % (Auto) 0.5, Baso % (Auto) 0.1, Absolute Neuts (auto) 5.8, Absolute Lymphs (auto) 1.35, Nucleated RBC % 0, Sodium 140, Potassium 4.1, Chloride 110 H, Carbon Dioxide 26.0, Anion Gap 4 L, BUN 23 H, Creatinine 0.90, Estim Creat Clear Calc 55.78, Est GFR (MDRD) Af Amer 79, Est GFR (MDRD) Non-Af 66, BUN/Creatinine Ratio 25.6 H, Glucose 117 H, Calcium 9.3, Total Bilirubin 0.80, Direct Bilirubin 0.23, AST 17, ALT 21, Alkaline Phosphatase 111, Total Protein 7.0, Albumin 3.8, Globulin 3.2, Lipase 23 03/10/24 06:56: Urine Color Yellow, Urine Clarity Clear, Urine pH 8.0, Ur Specific [place] 1.015, Urine Protein Negative, Urine Glucose (UA) Normal, Urine Ketones Negative, Urine Occult Blood Negative, Urine Nitrite Negative, Urine Bilirubin Negative, Urine Urobilinogen Normal, Ur Leukocyte Esterase Negative, Urine RBC 0 SEEN, Urine WBC 0 SEEN, Ur Squamous Epith Cells 0 SEEN, Amorphous Sediment 2+, Urine Bacteria 0 SEEN, Urine Mucus 0 SEEN Imaging Radiology Impression Abdomen/Pelvis CT 03/10/24 05:45 IMPRESSION: Distal small bowel obstruction. Etiology uncertain, most likely adhesions. Difficult to completely exclude volvulus or internal hernia. Small amount of ascites. Electronically Signed: Adriane Field MD at 7:13 EST , Assessment & Plan Assessment/Plan (1) Small bowel obstruction: PLAN: Plan 1. Acute small bowel obstruction-patient is minimally symptomatic at this time, she states she feels that she could have a bowel movement, patient will be admitted to [facility], IV fluids will be administered, pain medications will be administered as needed, patient will be seen by general surgery. #2 essential hypertension-patient's medication will be held at this time due to her n.p.o. status Total clinical time spent by myself addressing the patient's medical issues, reviewing all of her data, and collaborating with patient's care team: 55 minutes Charges/Coding Visit Charges Inpatient E&M: 78568 Subs Hosp L2
--- NOTE | 2024-03-10 10:49 | CM.UR ---
ALANA LEON Assessment Face to Face with patient for initial transition planning/care coordination assessment. ALANA LEON introduced self and role at [facility], pt voices understanding. Pt is A&Ox4 and is resting comfortably in bed and is calm. Care providers, pharmacy, and demographics verified. Admitting dx: SBO LACE Strata: 1 PCP: Sunny Pleitez Specialists: Stacy (REYNA), RUTH Preferred Pharmacy: [facility] Insurance: [facility] A/B, MMO Prescription Benefit: Yes LNOK: Fantasma Sarabia (H) Living Arrangements: Pt lives with her in a two story home with a FFSU and two steps to enter ADLs/IADLs: Ind Transportation: Self, DME: Pt has access to the following: Cane, FWW, RTS, BP Monitor, BSC HHC/SNF: Denies history or needs Pt?s goal: Home Plan: Home no needs. 6-Click is 24. Pt denies needs moving forward and states that she feels safe returning home with her once she is medically ready. Denies further questions or concerns at this time. Prateek Martini RN, CM
--- NOTE | 2024-03-10 11:41 | EX.PCM.CON.S ---
Assessment & Plan Assessment/Plan (1) Small bowel obstruction: PLAN: I have been consulted in conjunction with Dr. Fairchild. He will also evaluate this patient. Patient has a one day history of abdominal crampy associated with nausea and lack of appetite. Her bowel habits are diarrhea normally. She takes Lomotil on an every other day basis to assist with control of the diarrhea. Due to the abdominal crampy intensity, patient proceeded to the ED. CT scan demonstrated partial small bowel obstruction. Will plan to obtain a small bowel follow-through to rule out any obstruction since the patient has already had a small bowel movement. If the small bowel follow-through is unremarkable, patient may be tried on clear liquids and advanced as tolerated and potentially discharged home. If small bowel follow-through fails, we will discuss surgical intervention. Patient voices she would like to be discharged today if possible. Patient has had the opportunity to ask and have questions answered. Patient verbally understands and agrees with the plan. Patient and plan was also discussed with Dr. Saldivar. Thank you for allowing us to participate in this patient's care. HPI Consult Data Date of Consult: 03/10/24 HPI Narrative Reason for Consultation: Small bowel obstruction HPI Narrative: VOLODYMYR FELDMAN, is a 73 F who presents with a one day history of generalized abdominal crampy which started around 9:00 pm last night. She noted feeling achy and having cold chills as well. She notes a history of fluctuating between diarrhea and normla stools. She thought she may be having a kidney stone, as she has a history of kidney stones and her present symptoms felt similar. She notes a 0430 AM this morning, her symptoms continued and her , Dr. Feldman, recommended she come to the hospital. PAtient notes she continues to have a slight crampy sensation within her abdomen. She notes positive flatus and has had a bowel movement. She denies any nausea, vomiting. She notes having nausea in the ED which resolved with Zofran. She declined an NG tube. She notes being diagnosed approximately 5 years ago with microscopic colitis. She was treated with budesonide, however ever since that time she has had diarrhea. She sees Dr. Kumar, who recommended she take Lomotil every other night, which she states helps to balance her stools. She notes her last colonoscopy was [address] Kumar. She states a couple of polyps were found, otherwise unremarkable. She notes her previous abdominal surgeries include an appendectomy and umbilical hernia with sutures, however she is unable to recall if mesh was used. CT scan of the ab/pel demonstrated distal small bowel obstruction, etiology uncertain, most likely adhesions. Difficult to completely exclude volvulus or internal hernia. Small amount of ascites. Labs notable for Hgb 16.0, BUN 23. PFSH Medical History Calculus of right kidney Gastrointestinal problem Microscopic colitis Neuropathy Osteopenia Retinal detachment Vitamin deficiency Home Medications ?Medication ?Instructions ?Recorded ?Last Taken ?Type cholecalciferol (vitamin D3) 25 25 mcg PO DAILY vitamin 08/26/21 Unknown History mcg (1,000 unit) capsule loperamide 2 mg capsule (Imodium 2 mg PO Q6H PRN diarrhea 08/26/21 Unknown History A-D) magnesium 200 mg tablet 200 mg PO DAILY . 02/17/23 Unknown History amlodipine 5 mg tablet (Norvasc) 5 mg PO DAILY #10 tabs 11/20/23 Unknown Rx Allergy/AdvReac Type Severity Reaction Status Date / Time No Known Allergies Allergy Verified 03/10/24 04:59 Family History Father Colon cancer Heart disease Grandfather CVA (cerebral vascular accident) Other Malignant hyperthermia due to anesthesia Surgical History History of umbilical hernia repair History of ureteroscopy (11/22/21) Social History Smoking Status: Never smoker alcohol intake: current details: occasionally wine 5-6 a week ROS Constitutional Constitutional: Reports systems reviewed and no addt'l complaints, except as documented Eyes Eyes: Reports systems reviewed and no addt'l complaints, except as documented ENT HEENT: Reports systems reviewed and no addt'l complaints, except as documented Cardiovascular Cardiovascular: Reports systems reviewed and no addt'l complaints, except as documented Respiratory/Chest Respiratory/Chest: Reports systems reviewed and no addt'l complaints, except as documented Gastrointestinal Gastrointestinal: Reports systems reviewed and no addt'l complaints, except as documented Genitourinary Genitourinary: Reports systems reviewed and no addt'l complaints, except as documented Musculoskeletal Musculoskeletal: Reports systems reviewed and no addt'l complaints, except as documented Integumentary Integumentary: Reports systems reviewed and no addt'l complaints, except as documented Neurologic Neurologic: Reports systems reviewed and no addt'l complaints, except as documented Psychiatric Psychiatric: Reports systems reviewed and no addt'l complaints, except as documented Endocrine Endocrinology: Reports systems reviewed and no addt'l complaints, except as documented Hematologic/Lymphatic Hematologic/Lymphatic: Reports systems reviewed and no addt'l complaints, except as documented Allergic/Immunologic Allergic/Immunologic: Reports systems reviewed and no addt'l complaints, except as documented Physical Exam Const alert, oriented x3 and no apparent distress HEENT normocephalic and head/scalp atraumatic Eyes PERRL Neck full ROM Resp normal respiratory effort and clear to auscultation bilaterally Cardio regular rate and regular rhythm GI GI Narrative: Abdomen- soft, generalized tenderness, hyperactive bowel sounds. no CVA tenderness Back/Spine no CVA tenderness Extremity normal to inspection Skin no rashes or lesions noted Neuro no focal motor deficits and no sensory deficits noted Psych mental status grossly normal, thought process normal and cooperative Lab / Micro Data 03/10/24 05:33 03/10/24 05:33 Labs: Laboratory Results - last 24 hr 03/10/24 05:33: WBC 7.9, RBC 5.73 H, Hgb 16.0 H, Hct 48.1 H, MCV 83.9, MCH 27.9, MCHC 33.3, RDW Std Deviation 43.6, RDW Coeff of Althea 14.3, Plt Count 405, MPV 9.8, Immature Gran % (Auto) 0.500, Neut % (Auto) 73.5 H, Lymph % (Auto) 17.0 L, [place] % (Auto) 8.4, Eos % (Auto) 0.5, Baso % (Auto) 0.1, Absolute Neuts (auto) 5.8, Absolute Lymphs (auto) 1.35, Nucleated RBC % 0, Sodium 140, Potassium 4.1, Chloride 110 H, Carbon Dioxide 26.0, Anion Gap 4 L, BUN 23 H, Creatinine 0.90, Estim Creat Clear Calc 55.78, Est GFR (MDRD) Af Amer 79, Est GFR (MDRD) Non-Af 66, BUN/Creatinine Ratio 25.6 H, Glucose 117 H, Calcium 9.3, Total Bilirubin 0.80, Direct Bilirubin 0.23, AST 17, ALT 21, Alkaline Phosphatase 111, Total Protein 7.0, Albumin 3.8, Globulin 3.2, Lipase 23 03/10/24 06:56: Urine Color Yellow, Urine Clarity Clear, Urine pH 8.0, Ur Specific [place] 1.015, Urine Protein Negative, Urine Glucose (UA) Normal, Urine Ketones Negative, Urine Occult Blood Negative, Urine Nitrite Negative, Urine Bilirubin Negative, Urine Urobilinogen Normal, Ur Leukocyte Esterase Negative, Urine RBC 0 SEEN, Urine WBC 0 SEEN, Ur Squamous Epith Cells 0 SEEN, Amorphous Sediment 2+, Urine Bacteria 0 SEEN, Urine Mucus 0 SEEN Imaging Radiology Impression Abdomen/Pelvis CT 03/10/24 05:45 IMPRESSION: Distal small bowel obstruction. Etiology uncertain, most likely adhesions. Difficult to completely exclude volvulus or internal hernia. Small amount of ascites. Electronically Signed: Adriane Field MD at 7:13 EST , Charges/Coding Visit Charges Inpatient E&M: 87032 Init Hosp L2
[2024-03-10 12:00] VITALS: BP 130/93; PULSE 88; RESP 18; TEMP 36.6; O2SAT 98
--- NOTE | 2024-03-10 12:00 | RAD_ITS ---
CLINICAL HISTORY: Female, 73 years old. Abdominal pain and distention PROCEDURE: Small bowel follow-through CONSENT: Informed consent obtained SEDATION: None No fluoroscopy, 6 overhead images obtained TECHNIQUE: (All elements of maximal sterile barrier technique followed, including US elements as applicable) Contrast was ingested by the patient, serial films tracked the progress of the barium through the intestinal tract. The initial film shows normal filling of the stomach and duodenum. There is no demonstrated abnormality within the distended stomach or proximal duodenum. There is some contrast within the distal esophagus which could represent reflux. Progressive films were performed until a final film was taken at 6 hours which shows the majority of the ingested barium to be within the colon. The visualized small bowel loops are borderline distended but do not demonstrate abnormal mucosal irregularity or separation to suspect inflammation. There is also no evidence to suspect obstruction, findings are consistent with ileus. There is also evidence of IV contrast within the bladder. RAD/Small Bowel Series Only IMPRESSION: Ileus Electronically Signed: Gregg Lee MD at 20:18 EST ,
--- NOTE | 2024-03-10 18:29 | DCINST_ITS ---
Discharge Instructions Diet Discharge Diet: No restrictions Activity Discharge Activity: Return to Normal Activity Weight Bearing Status: Full weight bearing Follow Up Care Test Results: Test results from this visit will be discussed in further detail at your follow- up appointment, if applicable. Discharge Plan Admission Admit Date/Time: 03/10/24 07:41 Primary Reason for Your Visit: Partial small bowel obstruction-resolved Attending Provider: Kenji Saldivar Primary Care Provider: Sunny Pleitez Consulting Providers: Todd Fairchild Discharge Orders/Prescriptions Prescriptions: Continued loperamide [Imodium A-D] 2 mg capsule 2 mg PO Q6H PRN (Reason: diarrhea) cholecalciferol (vitamin D3) 25 mcg (1,000 unit) capsule 25 mcg PO DAILY magnesium 200 mg tablet 200 mg PO DAILY amlodipine [Norvasc] 5 mg tablet 5 mg PO DAILY Qty: 10 1RF Referrals / Follow Up: Sunny Pleitez MD [Primary Care Provider] - Within 2 Weeks Disposition Disposition (needs filled in before D/C Order can be placed): Home, Self Care
--- NOTE | 2024-03-10 18:30 | DS.PCM_ITS ---
Providers Date of Admission: 03/10/24 Date of Discharge: 03/10/24 Primary Care Physician: Dr. Sunny Pleitez MD Consultations 03/10/24 08:20 Consult: General Surgery Routine Consulting Provider: Todd Fairchild Reason for Consult: small bowel obstruction EMERGENT Consult: No MD Notified: Yes Date Notified: 03/10/24 Time Notified: 07:51 Method of Notification: Verbal Reason For Visit: SMALL BOWEL OBSTRUCTION Diagnosis Discharge Diagnosis (1) Small bowel obstruction: Status: Acute Code(s): K56.609 - Unspecified intestinal obstruction, unspecified as to partial versus complete obstruction Plan 1. Acute small bowel obstruction-patient is minimally symptomatic at this time, she states she feels that she could have a bowel movement, patient will be admitted to [facility], IV fluids will be administered, pain medications will be administered as needed, patient will be seen by general surgery. #2 essential hypertension-patient's medication will be held at this time due to her n.p.o. status Total clinical time spent by myself addressing the patient's medical issues, reviewing all of her data, and collaborating with patient's care team: 55 minutes Medications at Discharge Home Medications cholecalciferol (vitamin D3) 25 mcg (1,000 unit) capsule 25 mcg PO DAILY vitamin 08/26/21 loperamide 2 mg capsule (Imodium A-D) 2 mg PO Q6H PRN diarrhea 08/26/21 magnesium 200 mg tablet 200 mg PO DAILY . 02/17/23 amlodipine 5 mg tablet (Norvasc) 5 mg PO DAILY #10 tabs 11/20/23 Hospital Course Operations None Procedures None Summary of Care Provided Minutes Spent on Discharge: 70 Hospital Course: This 73-year-old white female was seen in the emergency room at [facility] with a chief complaint of abrupt abdominal pain which started the morning she was seen in the emergency room. Patient stated she had a bowel movement at home but this did not help the abdominal pain. Patient also complained of nausea. Labs obtained in the emergency room showed a normal white blood cell count, chemistry profile was unremarkable, urinalysis was unremarkable, CT of the abdomen pelvis showed evidence of a distal small bowel obstruction. There is a small amount of ascites noted also. General surgery was contacted, it was recommended that the patient have an NG tube but she refused. Patient was admitted to [place] [address], given IV fluids and IV pain meds, she did have an additional bowel movement while in the hospital and surgery ordered an upper GI with small bowel follow-through, during the time she took the prep for this procedure she had several bowel movements. Her abdominal pain diminished markedly. Upper GI with small bowel follow-through showed presence of contrast in the colon. On 03/10/2024, patient was seen and examined: On examination she appeared in good health and spirits, she does not appear to be in any distress. Vital signs as documented. Skin warm and dry and without overt rashes. Neck without JVD, thyroid appears normal, trachea is midline, neck is supple. Lungs clear, normal air movement was noted. Heart exam notable for regular rhythm, normal sounds and absence of murmurs, rubs or gallops. Abdomen unremarkable and without evidence of organomegaly, masses, or abdominal aortic enlargement, bowel sounds are present in all 4 quadrants, no abdominal tenderness was noted. Extremities nonedematous, no cyanosis was noted, no clubbing was noted. Neuro: Cranial nerves II through XII are grossly intact, no focal motor deficits were noted, sensation to light touch and pinprick is intact, motor exam 5/5 throughout. Psych: Patient is alert and oriented x3, she does not appear anxious or depressed, she does not appear agitated. Patient was felt to be stable for discharge home on 03/10/2024 Weight / BMI Weight Weight: 73.936 kg Body Mass Index (BMI) 27.9 ABG / Lab / Microbiology Data 03/10/24 05:33 03/10/24 05:33 Laboratory: Laboratory Results - last 24 hr 03/10/24 05:33: WBC 7.9, RBC 5.73 H, Hgb 16.0 H, Hct 48.1 H, MCV 83.9, MCH 27.9, MCHC 33.3, RDW Std Deviation 43.6, RDW Coeff of [place] 14.3, Plt Count 405, MPV 9.8, Immature Gran % (Auto) 0.500, Neut % (Auto) 73.5 H, Lymph % (Auto) 17.0 L, Dare % (Auto) 8.4, Eos % (Auto) 0.5, Baso % (Auto) 0.1, Absolute Neuts (auto) 5.8, Absolute Lymphs (auto) 1.35, Nucleated RBC % 0, Sodium 140, Potassium 4.1, Chloride 110 H, Carbon Dioxide 26.0, Anion Gap 4 L, BUN 23 H, Creatinine 0.90, Estim Creat Clear Calc 55.78, Est GFR (MDRD) Af Amer 79, Est GFR (MDRD) Non-Af 66, BUN/Creatinine Ratio 25.6 H, Glucose 117 H, Calcium 9.3, Total Bilirubin 0.80, Direct Bilirubin 0.23, AST 17, ALT 21, Alkaline Phosphatase 111, Total Protein 7.0, Albumin 3.8, Globulin 3.2, Lipase 23 03/10/24 06:56: Urine Color Yellow, Urine Clarity Clear, Urine pH 8.0, Ur Specific [place] 1.015, Urine Protein Negative, Urine Glucose (UA) Normal, Urine Ketones Negative, Urine Occult Blood Negative, Urine Nitrite Negative, Urine Bilirubin Negative, Urine Urobilinogen Normal, Ur Leukocyte Esterase Negative, Urine RBC 0 SEEN, Urine WBC 0 SEEN, Ur Squamous Epith Cells 0 SEEN, Amorphous Sediment 2+, Urine Bacteria 0 SEEN, Urine Mucus 0 SEEN Radiography Diagnostic Testing: Radiology Impression Abdomen/Pelvis CT 03/10/24 05:45 IMPRESSION: Distal small bowel obstruction. Etiology uncertain, most likely adhesions. Difficult to completely exclude volvulus or internal hernia. Small amount of ascites. Electronically Signed: Adriane Field MD at 7:13 EST Reading Location ID and State: [address] [place] [address] Tel , Service support , D/C Instructions Discharge Diet: No restrictions Weight Bearing Status: Full weight bearing Meaningful Use Info Meaningful Use Meaningful Use Diagnoses (Choose all that apply): None applicable Ischemic Stroke Statin Dosing Therapy Reference: STATIN DOSE THERAPY REFERENCE: * Patients > 75 years receive moderate or high dose statin therapy. * Patients 75 years or YOUNGER should receive HIGH intensity statin dose unless contraindicated. You will be required to document reason for non-treatment if statin daily dose does not meet guidelines. HIGH DOSE STATIN THERAPY DAILY Atorvastatin > than or = to 40 mg Rosuvastatin > than or = to 20 mg Amlodipine + Atorvastatin > than or = to 2.5/40 mg Ezetimibe + Simvastatin 10/80 mg Simvastatin 80mg Discharge Plan Admission Admit Date/Time: 03/10/24 07:41 Primary Reason for Your Visit: Partial small bowel obstruction-resolved Attending Provider: Kenji aSldivar Primary Care Provider: Sunny Pleitez Consulting Providers: Todd Fairchild Discharge Orders/Prescriptions Prescriptions: Continued loperamide [Imodium A-D] 2 mg capsule 2 mg PO Q6H PRN (Reason: diarrhea) cholecalciferol (vitamin D3) 25 mcg (1,000 unit) capsule 25 mcg PO DAILY magnesium 200 mg tablet 200 mg PO DAILY amlodipine [Norvasc] 5 mg tablet 5 mg PO DAILY Qty: 10 1RF Referrals / Follow Up: Sunny Pleitez MD [Primary Care Provider] - Within 2 Weeks Disposition Disposition (needs filled in before D/C Order can be placed): Home, Self Care Charges/Coding Visit Charges OBSV E&M: 92207 Observ/hosp same date L2
[2024-03-10 18:40] VITALS: BP 144/88; PULSE 86; RESP 15; O2SAT 95
== END 2024-03-10 18:43 | disposition home or self-care (01) | DRG 390 ==
LOC: ED 07:43 → ICU 08:13
PROVIDERS: Admitting Provider Internal Medicine; Emergency Provider Emergency Medicine; PCP Family Medicine; Visit Provider Internal Medicine
DX: K56.600 Partial intestinal obstruction, unspecified as to cause (principal); I10 Essential (primary) hypertension; M85.80 Other specified disorders of bone density and structure, unspecified site; Z53.20 Procedure and treatment not carried out because of patient's decision for unspecified reasons; Z80.0 Family history of malignant neoplasm of digestive organs; Z90.49 Acquired absence of other specified parts of digestive tract; Z87.19 Personal history of other diseases of the digestive system; Z79.899 Other long term (current) drug therapy; Z87.442 Personal history of urinary calculi
CPT/HCPCS: 74177; 74250; 80048; 80076; 81001; 83690; 85025; 99284; Q9967; A4216; J2405

== ENCOUNTER → 2024-09-05 | Outpatient (CLI) | payer MEDICARE, OTHER, SELFPAY ==
--- NOTE | 2024-09-05 09:43 | CT_ITS ---
PROCEDURE: ABDOMEN/PELVIS WITHOUT CONT 09/05/2024 REASON FOR EXAM: CALCULUS OF KIDNEY right flank pain TECHNIQUE: Abdomen and pelvis CT without intravenous contrast. Noncontrast technique limits evaluation of the abdominal and pelvic viscera. Coronal and Sagittal reconstruction series were provided. One or more dose reduction techniques were used (e.g., Automated exposure control, adjustment of the mA and/or kV according to patient size, use of iterative reconstruction technique). DLP = 487.42 mGy-cm. PATIENT PREPARATION: Per protocol ORAL CONTRAST TYPE: None. COMPARISON: March 10, 2024, November 11, 2021 FINDINGS: Lung bases: Scar is noted at the right and left lung base, similar to the prior. There is a 0.6 cm solid peripheral density at the left lung base, image 29/161, unchanged. Liver: Unremarkable Gallbladder: Unremarkable Spleen: Unremarkable Pancreas: Unremarkable Adrenals: Unremarkable Kidneys: There is a 0.2 cm nonobstructing stone in the midpole of the right kidney, image 63/161. There is no ureteral stone or hydronephrosis. Bladder: Nondistended Reproductive Organs: Unremarkable Bowel: There is a moderate stool load. Small bowel loops are not distended. Appendix: Absent, radiopaque sutures are noted in the right lower quadrant. Lymph nodes: There is no visible pathologic adenopathy by size criteria. Vasculature: Atherosclerotic calcifications are noted. Peritoneum / Retroperitoneum: Phleboliths are noted in the pelvis, unchanged. Bones: There is grade 2 spondylolisthesis at L5-S1, 1.1 cm, unchanged. CT/Abdomen/Pelvis without Cont IMPRESSION: Scar is noted at the right and left lung base, similar to the prior. There is a 0.6 cm solid peripheral density at the left lung base, image 29/161, unchanged. There is a 0.2 cm nonobstructing stone in the midpole of the right kidney, imag e 63/161. There is no ureteral stone or hydronephrosis. There is grade 2 spondylolisthesis at L5-S1, 1.1 cm, unchanged. Reading Location: [facility]
[2024-09-05 11:20] LABS: Hematocrit 45.8 % (37-47); Hemoglobin 15.1 g/dL (12.0-15.0); Mean Corpuscular Hgb 27.9 pg (27.0-32.0); Mean Corpuscular Volume 84.5 fL (81-99); Mean Platelet Vol. 9.6 fl (6.2-12.0); Platelet Count 279 K/mm3 (150-450); RBC Distribution Width CV 14.6 % (11.6-14.6); RBC Distribution Width SD 44.9 fl (35.1-43.9); Red Blood Count 5.42 M/mm3 (4.2-5.4); White Blood Count 5.6 K/mm3 (4.4-11.0)
[2024-09-05 11:54] LABS: Anion Gap 11 (5-15); BUN 15 mg/dL (4-19); BUN/Creat Ratio 17.6 RATIO (10-20); Calcium,Total 9.2 mg/dL (7.6-11.0); Carbon Dioxide 24.1 mmol/L (21.0-32.0); Chloride 104 mmol/L (98-108); Creatinine, Serum 0.83 mg/dL (0.70-1.20); EST Glomerular Filtration Rate 74 (>60); Glucose 107 mg/dL (70-99); Potassium 4.2 mmol/L (3.3-5.1); Sodium Level 139 mmol/L (133-145)
== END | disposition home or self-care (01) ==
PROVIDERS: PCP Family Medicine; Referring Provider Urology; Visit Provider Urology
DX: N30.00 Acute cystitis without hematuria (principal); N20.0 Calculus of kidney; R30.0 Dysuria
CPT/HCPCS: 36415; 74176; 80048; 85027; 87086; 87088

== ENCOUNTER → 2025-04-11 | Outpatient (CLI) | payer MEDICARE, OTHER, SELFPAY ==
[2025-04-11 10:10] LABS: Hematocrit 49.9 % (37-47); Hemoglobin 15.6 g/dL (12.0-15.0); Immature Granulocytes Count 0.010 X10^3/uL (0.0-0.0); Mean Corp Hgb Conc 31.3 g/dL (32-36); Mean Corpuscular Volume 86.0 fL (81-99); Mean Platelet Vol. 9.7 fl (6.2-12.0); NRBC Flagged by Analyzer 0 % (0-5); Platelet Count 404 K/mm3 (150-450); RBC Distribution Width CV 14.5 % (11.6-14.6); RBC Distribution Width SD 45.5 fl (35.1-43.9); Red Blood Count 5.80 M/mm3 (4.2-5.4); White Blood Count 5.7 K/mm3 (4.4-11.0)
[2025-04-11 10:31] LABS: Creatinine, Urine (random) 65.30 mg/dL (28.00-217.00); Microalbumin,Random Urine < 12.0 mg/L (<20 mg/L)
[2025-04-11 12:47] LABS: AST(SGOT) 22 U/L (<=31); Alanine Aminotransfer ALT/SGPT 15 U/L (<=34); Albumin, Serum 4.2 g/dL (3.4-4.8); Alkaline Phosphatase 101 U/L (35-104); Anion Gap 11 (5-15); BUN 21 mg/dL (4-19); BUN/Creat Ratio 21.1 RATIO (10-20); Calcium,Total 9.3 mg/dL (7.6-11.0); Carbon Dioxide 26.5 mmol/L (21.0-32.0); Chloride 104 mmol/L (98-108); Globulin 2.4 g/dL (2.2-4.2); Glucose 114 mg/dL (70-99); Potassium 4.2 mmol/L (3.3-5.1); Vitamin B12 425 pg/mL (180-914)
[2025-04-11 12:47] LABS: FOLATES,SERUM (FOLIC ACID) 10.50 ng/mL (4.60-34.80)
== END | disposition home or self-care (01) ==
LOC: MTLAB 09:11
PROVIDERS: PCP Family Medicine; Referring Provider Family Medicine; Visit Provider Family Medicine
DX: I10 Essential (primary) hypertension (principal); E53.8 Deficiency of other specified B group vitamins
CPT/HCPCS: 36415; 80053; 82043; 82570; 82607; 82746; 85025